=== PATIENT | male | born 1990 | race African-American/Black ===

== ENCOUNTER 2018-06-03 15:14 | Emergency (ER) | payer MEDICAID ==
[~2018-06-03] VITALS: Ht 175.3 cm; Wt 130.0 kg
[2018-06-03] MEDS ORDERED: AZITHROMYCIN 500 MG TABLET PO SCH (17:00)
[2018-06-03] MEDS ORDERED: CEFTRIAXONE SODIUM 250 MG/VIAL IM ONE (17:00)
[2018-06-03 20:39] VITALS: BP 146/83
== END 2018-06-03 21:10 | disposition home or self-care (01) ==
LOC: ER 16:36
DX: N34.2 Other urethritis (principal); F17.200 Nicotine dependence, unspecified, uncomplicated; F12.10 Cannabis abuse, uncomplicated
CPT/HCPCS: 96372; 99283; J0696